=== PATIENT | male | born 1960 | race African-American/Black ===

== ENCOUNTER 2018-05-09 03:27 | Emergency (ER) | payer OTHER ==
[2018-05-09] MEDS ORDERED: TETANUS & DIPHTHERIA TOX,ADULT 0.5 ML VIAL ONE (05:42)
[2018-05-09] MEDS ORDERED: LIDOCAINE 1% MPF 30 ML VIAL ONE (06:02)
--- NOTE | 2018-05-09 06:27 | EDPHYS ---
Physician Documentation [facility] Name: Misbah May Age: 57 yrs Sex: Male : 1960 Arrival Date: 05/09/2018 Time: 03:29 Bed 5 Private MD: ED Physician Noel Kumar HPI: 05/09 06:19 This 57 yrs old Black Male presents to ER via Ambulatory with complaints of Laceration pkl To Head. 06:19 The patient or guardian reports injury, a laceration, 4 cm(s). The complaints affect pkl the right forehead. Context of injury: resulted from a fall, Fell out of bed and hit corner of furniture. Onset: The symptoms/episode began/occurred just prior to arrival. Associated signs and symptoms: The patient has no apparent associated signs or symptoms, Loss of consciousness: This patient did not experience any loss of consciousness. Historical: - Allergies: 03:47 No Known Allergies; ao - Home Meds: 03:47 Blood pressure [Active]; ao - PMHx: 03:47 Hypertension; prostate enlarge; ao - PSHx: 03:47 None; ao - Immunization history:: Adult Immunizations up to date. - Social history:: Smoking status: Patient uses tobacco products. - Ebola Screening: : Patient negative for fever greater than or equal to 101.5 degrees Fahrenheit, and additional compatible Ebola Virus Disease symptoms Patient denies exposure to infectious person Patient denies travel to an Ebola-affected area in the 21 days before illness onset. ROS: 06:19 Eyes: Negative for injury, pain, redness, and discharge, ENT: Negative for injury, pkl pain, and discharge, Neck: Negative for injury, pain, and swelling, Cardiovascular: Negative for chest pain, palpitations, and edema, Respiratory: Negative for shortness of breath, cough, wheezing, and pleuritic chest pain, Abdomen/GI: Negative for abdominal pain, nausea, vomiting, diarrhea, and constipation, Back: Negative for injury and pain, : Negative for injury, bleeding, discharge, and swelling, MS/Extremity: Negative for injury and deformity. 06:19 Skin: Positive for laceration(s), of the right forehead. 06:19 Neuro: Negative for altered mental status, loss of consciousness. Exam: 06:19 Head/face: Noted is a laceration(s), that is deep, 4 cm(s), of the right forehead. pkl 06:19 Eyes: Exam is negative for acute changes. 06:19 ENT: Exam is negative for acute changes. 06:19 Neck: Exam negative for obvious evidence of injury or deformity, nuchal rigidity. 06:19 Chest/axilla: Exam negative for acute changes. 06:19 Cardiovascular: Rate: normal, Rhythm: regular. 06:19 Respiratory: the patient does not display signs of respiratory distress, Respirations: normal, Breath sounds: are clear throughout. 06:19 Abdomen/GI: Exam negative for acute changes. 06:19 Back: Exam negative for acute changes. 06:19 : Exam negative for acute changes. 06:19 Musculoskeletal/extremity: Exam is negative for acute changes. 06:19 Skin: Exam negative for rash. 06:19 Neuro: Orientation: is normal, Mentation: is normal, Cranial nerves: grossly normal, Motor: is normal. 06:27 Constitutional: This is a well developed, well nourished patient who is awake, alert, pkl and in no acute distress. Vital Signs: 03:48 BP 173 / 109; Pulse 72; Resp 18; Pulse Ox 96% on R/A; Weight 127.01 kg; Height 5 ft. 6 ao in. (167.64 cm); Pain 6/10; 04:40 BP 135 / 97; Pulse 76; Resp 18; Pulse Ox 96% on R/A; Pain 0/10; ao 05:20 BP 143 / 96; Pulse 69; Resp 18; Pulse Ox 98% on R/A; Pain 0/10; ao 05:50 Temp 98.3(O); ak1 03:48 Body Mass Index 45.19 (127.01 kg, 167.64 cm) ao Nadine Coma Score: 06:19 Eye Response: spontaneous(4). Verbal Response: oriented(5). Motor Response: obeys pkl commands(6). Total: 15. Laceration: 06:19 Wound Repair of 4cm ( 1.6in ) subcutaneous laceration to right forehead. Minimal pkl bleeding noted.. Distal neuro/vascular/tendon intact. Anesthesia: Local anesthetic administered with 5 mls of 1% lidocaine. Wound prep: Extensive cleansing by me. Skin closed with 4 4-0 Prolene using simple sutures and sterile technique. Dressed with Neosporin. Patient tolerated well. MDM: 03:33 Patient medically screened. pkl 06:19 Data reviewed: vital signs, nurses notes, radiologic studies, CT scan. pk 05/09 05:26 Order name: CT Head Brain wo Cont cc 05/09 05:46 Order name: Suture Tray Setup; Complete Time: 05:46 [facility] Administered Medications: 05:40 Drug: Tetanus-Diphtheria Toxoid Adult 0.5 ml {Auto Body Mechanic: [employer]. Exp: ak1 04/29/2020. Lot #: [id number]. } Route: IM; Site: right deltoid; 05:52 Follow up: Response: No adverse reaction ak1 06:18 Drug: Lidocaine (1 %) 1 per protocol Volume: 20 ml; Route: Infiltration; ak1 06:18 Follow up: Response: No adverse reaction; placed at bedside for provier to administer. ak1 Disposition: 05/09/18 06:26 Discharged to Home. Impression: Head injury. Laceration forehead. S/P Fall. - Condition is Stable. - Medication Reconciliation Form, Thank You Letter, Antibiotic Education, Prescription Opioid Use form. - Follow up: Private Physician; When: 1 week; Reason: Wound Recheck, Staple/Suture removal, Re-evaluation by your physician. Signatures: Dispatcher [employer] EDHI Noel Kumar MD MD pkl Krenek, Amber, RN RN ak1 Mu Vazquez RN RN ao Corrections: (The following items were deleted from the chart) 05:58 05:26 Head Brain Wo Cont+CT.RAD.BRZ ordered. [facility] EDHI 06:35 06:26 05/09/2018 06:26 Discharged to Home. Impression: Head injury. Laceration ak1 forehead. S/P Fall. Condition is Stable. Forms are Medication Reconciliation Form, Thank You Letter, Antibiotic Education, Prescription Opioid Use. Follow up: Private Physician; When: 1 week; Reason: Wound Recheck, Staple/Suture removal, Re-evaluation by your physician. pk
--- NOTE | 2018-05-09 06:27 | ER ---
Nurse's Notes [facility] Name: Misbah May Age: 57 yrs Sex: Male : 1960 Arrival Date: 05/09/2018 Time: 03:29 Bed 5 Private MD: Diagnosis: Head injury. Laceration forehead. S/P Fall Presentation: 05/09 03:43 Presenting complaint: Patient states: Was sleeping and fall out of bed hitting on the ao corner of a furniture. Patient presented with a lacerations in the right side of the forehead. Transition of care: patient was not received from another setting of care. Complicating Factors: There are no complicating factors for this patient. Onset of symptoms was May 09, 2018 at 03:00. Risk Assessment: Do you want to hurt yourself or someone else? Patient reports no desire to harm self or others. Initial Sepsis Screen: Does the patient meet any 2 criteria? No. Patient's initial sepsis screen is negative. Does the patient have a suspected source of infection? No. Patient's initial sepsis screen is negative. Care prior to arrival: None. 03:43 Method Of Arrival: Ambulatory ao 03:43 Acuity: GEMA 3 ao Historical: - Allergies: 03:47 No Known Allergies; ao - Home Meds: 03:47 Blood pressure [Active]; ao - PMHx: 03:47 Hypertension; prostate enlarge; ao - PSHx: 03:47 None; ao - Immunization history:: Adult Immunizations up to date. - Social history:: Smoking status: Patient uses tobacco products. - Ebola Screening: : Patient negative for fever greater than or equal to 101.5 degrees Fahrenheit, and additional compatible Ebola Virus Disease symptoms Patient denies exposure to infectious person Patient denies travel to an Ebola-affected area in the 21 days before illness onset. Screenin:21 Abuse screen: Denies threats or abuse. Denies injuries from another. Nutritional ao screening: No deficits noted. Tuberculosis screening: No symptoms or risk factors identified. Fall Risk None identified. Assessment: 03:30 General: Appears in no apparent distress. comfortable, Behavior is calm, cooperative, ao appropriate for age. Pain: Complains of pain in forehead. Neuro: Level of Consciousness is awake, alert, obeys commands, Oriented to person, place, time, situation, Appropriate for age Moves all extremities. Full function Speech is normal, Facial symmetry appears normal. Cardiovascular: Capillary refill < 3 seconds Patient's skin is warm and dry. Respiratory: Airway is patent Respiratory effort is even, unlabored, Respiratory pattern is regular, symmetrical. GI: Abdomen is non-distended. : No signs and/or symptoms were reported regarding the genitourinary system. EENT: No signs and/or symptoms were reported regarding the EENT system. Derm: Wound noted forehead. Musculoskeletal: Laceration to the right side of the head. Bleeding controlled. Injury Description: Laceration is contaminated, 0.5 to 2.5 cm long, not bleeding. 04:40 Reassessment: Patient stable at this moment. No procedures orders. Dr Kumar in another ao room with a critical patient. 05:19 Reassessment: Patient appears in no apparent distress at this time. Patient and/or ao family updated on plan of care and expected duration. Pain level reassessed. Patient sleeping with no ss of distress. 05:50 Reassessment: pt hair shaved at site, wound cleaned with saline, suture set up at ak1 bedside for provider. pt in CT now. Vital Signs: 03:48 BP 173 / 109; Pulse 72; Resp 18; Pulse Ox 96% on R/A; Weight 127.01 kg; Height 5 ft. 6 ao in. (167.64 cm); Pain 6/10; 04:40 BP 135 / 97; Pulse 76; Resp 18; Pulse Ox 96% on R/A; Pain 0/10; ao 05:20 BP 143 / 96; Pulse 69; Resp 18; Pulse Ox 98% on R/A; Pain 0/10; ao 05:50 Temp 98.3(O); ak1 03:48 Body Mass Index 45.19 (127.01 kg, 167.64 cm) ao Nadine Coma Score: 06:19 Eye Response: spontaneous(4). Verbal Response: oriented(5). Motor Response: obeys pkl commands(6). Total: 15. ED Course: 03:29 Patient arrived in ED. do 03:33 Noel Kumar MD is Attending Physician. pkl 03:43 Mu Vazquez RN is Primary Nurse. ao 03:45 Triage completed. ao 03:47 Arm band placed on right wrist. Patient placed in an exam room, on a stretcher, on ao surveillance system monitor, on pulse oximetry, Patient notified of wait time. 05:21 Patient has correct armband on for positive identification. Pulse ox on. NIBP on. ao 05:[address] via stretcher. kw1 05:56 CT Head Brain wo Cont In Process Unspecified. EDMS 05:57 CT completed. Patient tolerated procedure well. Patient moved back from CT. kw1 06:20 Assist provider with laceration repair on forehead that was 2.5 cm. or less using ak1 sutures. Set up tray. Performed by Noel Kumar MD. 06:20 Patient did not have IV access during this emergency room visit. ak1 Administered Medications: 05:40 Drug: Tetanus-Diphtheria Toxoid Adult 0.5 ml {Rn Intake: [employer]. Exp: ak1 04/29/2020. Lot #: [id number]. } Route: IM; Site: right deltoid; 05:52 Follow up: Response: No adverse reaction ak1 06:18 Drug: Lidocaine (1 %) 1 per protocol Volume: 20 ml; Route: Infiltration; ak1 06:18 Follow up: Response: No adverse reaction; placed at bedside for provier to administer. ak1 Intake: Outcome: 06:26 Discharge ordered by . pkgeorgi 06:35 Discharged to home ambulatory. ak1 06:35 Condition: good 06:35 Discharge instructions given to patient, Instructed on discharge instructions, follow up and referral plans. wound care, Demonstrated understanding of instructions, follow-up care, wound care. 06:35 Patient left the ED. ak1 Signatures: Dispatcher [employer] EDMS Noel Kumar MD MD pkHalima Sorto RN RN ak1 Mu Vazquez, RN RN Olive Bloom Kimberly kw1
--- NOTE | 2018-05-09 11:12 | RAD REPORT ---
EXAM DESCRIPTION: CT - Head Brain Wo Cont - 05/09/2018 5:55 am CLINICAL HISTORY: Fall Trauma, head injury COMPARISON: No comparisons TECHNIQUE: All CT scans are performed using dose optimization technique as appropriate and may inclu de automated exposure control or mA/KV adjustment according to patient size. FINDINGS: No intracranial hemorrhage, hydrocephalus or extra-axial fluid collection.No areas of brai n edema or evidence of midline shift. The paranasal sinuses and mastoids are clear. The calvarium is intact. IMPRESSION: No acute intracranial abnormality.
== END 2018-05-09 06:35 | disposition home or self-care (01) ==
LOC: ER 03:27
PROC: 0JQ10ZZ Repair Face Subcutaneous Tissue and Fascia, Open Approach (ICD-10-PCS; principal; 2018-05-09)
DX: S01.81XA Laceration without foreign body of other part of head, initial encounter (principal); I10 Essential (primary) hypertension; W17.89XA Other fall from one level to another, initial encounter; Y93.89 Activity, other specified; Y92.013 Bedroom of single-family (private) house as the place of occurrence of the external cause
CPT/HCPCS: 70450; 90714; 99284

== ENCOUNTER 2018-06-25 15:38 | Emergency (ER) | payer OTHER ==
[2018-06-25] MEDS ORDERED: IBUPROFEN 400 MG TAB ONE (18:21)
[2018-06-25] MEDS ORDERED: HYDROCODONE/APAP 7.5/325 MG TAB ONE (18:21)
--- NOTE | 2018-06-25 18:26 | RAD REPORT ---
EXAM DESCRIPTION: RAD - Ankle Left 3 View - 06/25/2018 4:57 pm CLINICAL HISTORY: Trauma, ankle pain COMPARISON: None. FINDINGS: Minimal bony avulsion is suspected at the inferior tip medial malleolus. Patient has moder ate severity underlying degenerative change at the tibiotalar joint space. No other fracture changes suspected. Moderate plantar spur is present. No joint effusion seen. No joint space narrowing. Soft t issue swelling around the ankle joint noted. IMPRESSION: Suspected minimal bony avulsion from the inferior tip of the medial malleolus.
--- NOTE | 2018-06-25 18:27 | RAD REPORT ---
EXAM DESCRIPTION: RAD - Foot Left 3 View - 06/25/2018 4:57 pm CLINICAL HISTORY: Trauma to the foot, foot pain COMPARISON: None. FINDINGS: No fracture, dislocation or periosteal reaction. No acute or destructive bony process. De generative changes are present at the first MTP joint. Moderate plantar spur is present. No air or foreign body in the soft tissues. IMPRESSION: Degenerative changes are present but no fracture confirmed.
--- NOTE | 2018-06-25 19:03 | EDPHYS ---
Physician Documentation [facility] Name: Misbah May Age: 57 yrs Sex: Male : 1960 Arrival Date: 06/25/2018 Time: 15:41 Bed 18 Private MD: ED Physician Shahzad Betancourt HPI: 06/25 18:00 This 57 yrs old Black Male presents to ER via Wheelchair with complaints of Ankle cp Injury. 18:00 The patient presents with an injury, pain, that is acute, swelling, tenderness. The cp complaints affect the left ankle. Onset: The symptoms/episode began/occurred today. 18:00 Context: struck big toe against door last night. cp 18:00 Associated signs and symptoms: Pertinent positives: drainage from toes, Pertinent cp negatives: calf tenderness, numbness, tingling, warmth. Historical: - Allergies: 15:50 No Known Allergies; aa5 - PMHx: 15:50 Hypertension; Enlarged prostate; aa5 - PSHx: 15:50 None; aa5 - Immunization history:: Adult Immunizations unknown. - Social history:: Smoking status: Patient uses tobacco products, smokes one-half pack cigarettes per day. - Ebola Screening: : No symptoms or risks identified at this time. ROS: 18:05 Constitutional: Negative for body aches, chills, fever, poor PO intake. cp 18:05 Eyes: Negative for injury, pain, redness, and discharge. cp 18:05 ENT: Negative for drainage from ear(s), ear pain, sore throat, difficulty swallowing, difficulty handling secretions. 18:05 Cardiovascular: Negative for chest pain, edema, palpitations. 18:05 Respiratory: Negative for cough, shortness of breath, wheezing. 18:05 Abdomen/GI: Negative for abdominal pain, nausea, vomiting, and diarrhea. 18:05 Back: Negative for pain at rest, pain with movement, radiated pain. 18:05 : Negative for urinary symptoms. 18:05 MS/extremity: Positive for pain, swelling, tenderness, of the left ankle. 18:05 All other systems are negative. Exam: 18:10 Constitutional: The patient appears in no acute distress, alert, awake, non-toxic, well cp developed, well nourished, obese. 18:10 Head/Face: Normocephalic, atraumatic. cp 18:10 Eyes: Periorbital structures: appear normal, Conjunctiva: normal, no exudate, no injection, Lids and lashes: appear normal, bilaterally. 18:10 ENT: External ear(s): are unremarkable, Nose: is normal, Mouth: Lips: moist, Oral mucosa: moist, Posterior pharynx: Airway: no evidence of obstruction, patent. 18:10 Chest/axilla: Inspection: normal. 18:10 Cardiovascular: Rate: normal. 18:10 Respiratory: the patient does not display signs of respiratory distress, Respirations: normal, no use of accessory muscles, no retractions, no splinting, no tachypnea. 18:10 Abdomen/GI: Inspection: obese 18:10 Back: pain, is absent, ROM is normal. 18:10 Musculoskeletal/extremity: Extremities: grossly normal except: noted in the left ankle and left foot: swelling, tenderness noted distal medial malleolus, There is no evidence of decreased ROM, deformity. 18:10 Skin: noted superficial wounds plantar surface of proximal left second and third toes, mild purulent drainage noted, mild swelling. Vital Signs: 15:54 BP 126 / 76; Pulse 96; Resp 18 S; Temp 99.8; Pulse Ox 98% on R/A; Weight 142.88 kg (R); aa5 Height 6 ft. 1 in. (185.42 cm) (R); Pain 5/10; 18:15 BP 132 / 81; Pulse 91; Resp 16; Pulse Ox 99% on R/A; Pain 5/10; em 15:54 Body Mass Index 41.56 (142.88 kg, 185.42 cm) aa5 MDM: 17:41 Patient medically screened. cp 19:00 Data reviewed: vital signs, nurses notes, radiologic studies, plain films, and as a cp result, I will discharge patient. 19:00 Test interpretation: by ED physician or midlevel provider: plain radiologic studies. cp Counseling: I had a detailed discussion with the patient and/or guardian regarding: the historical points, exam findings, and any diagnostic results supporting the discharge/admit diagnosis, radiology results, the need for outpatient follow up, a family practitioner, to return to the emergency department if symptoms worsen or persist or if there are any questions or concerns that arise at home. Response to treatment: the patient's symptoms have mildly improved after treatment, and as a result, I will discharge patient. 06/25 18:12 Order name: Wound Culture cp 06/25 15:56 Order name: Ankle Left 3 View XRAY; Complete Time: 18:45 aa5 06/25 15:56 Order name: Foot Left 3 View XRAY; Complete Time: 18:45 aa5 Administered Medications: 18:21 Drug: Hydrocodone-Acetaminophen (7.5 mg-325 mg) 1 tabs Route: PO; em 19:10 Follow up: Response: No adverse reaction; Pain is decreased em 18:21 Drug: Ibuprofen 800 mg Route: PO; em 19:10 Follow up: Response: No adverse reaction; Pain is decreased em Disposition: 06/25/18 19:00 Discharged to Home. Impression: Pain in left ankle and joints of left foot - with avulsion chip fracture medial malleolus, Cellulitis of left lower limb - Left Foot. - Condition is Stable. - Discharge Instructions: Elastic Bandage and RICE, Cellulitis, Adult, Ankle Pain. - Prescriptions for Clotrimazole 1 % Topical Cream - Apply to affected area 1 application by TOPICAL route every 12 hours apply to toes of left foot; 30 gram. Bactrim DS 800- 160 mg Oral Tablet - take 1 tablet by ORAL route every 12 hours for 10 days; 20 tablet. Anaprox DS 550 mg Oral Tablet - take 1 tablet by ORAL route every 12 hours As needed; 20 tablet. - Medication Reconciliation Form, Thank You Letter, Antibiotic Education, Prescription Opioid Use form. - Follow up: Private Physician; When: 2 - 3 days; Reason: Recheck today's complaints. - Problem is new. - Symptoms have improved. Addendum: 06/28/2018 08:13 Co-signature as Attending Physician, Shahzad Betancourt MD I agree with the assessment and c plascencia plan of care. Signatures: Dispatcher [employer] Shahzad Castanon MD MD cha Munoz, Edgar, BELL ATTENDANT BELL ATTENDANT Lin Apodaca RN RN aa5 Shahzad Camp PA PA cp Corrections: (The following items were deleted from the chart) 06/25 19:17 19:00 06/25/2018 19:00 Discharged to Home. Impression: Pain in left ankle and joints of em left foot - with avulsion chip fracture medial malleolus; Cellulitis of left lower limb - Left Foot. Condition is Stable. Forms are Medication Reconciliation Form, Thank You Letter, Antibiotic Education, Prescription Opioid Use. Follow up: Private Physician; When: 2 - 3 days; Reason: Recheck today's complaints. Problem is new. Symptoms have improved. cp
--- NOTE | 2018-06-25 19:03 | ER ---
Nurse's Notes [facility] Name: Misbah May Age: 57 yrs Sex: Male : 1960 Arrival Date: 06/25/2018 Time: 15:41 Bed 18 Private MD: Diagnosis: Pain in left ankle and joints of left foot-with avulsion chip fracture medial malleolus;Cellulitis of left lower limb-Left Foot Presentation: 06/25 15:53 Presenting complaint: Patient states: "I opened the door last night and hit my big toe aa5 with it but this morning I woke up with my left ankle hurting". Transition of care: patient was not received from another setting of care. Onset of symptoms was June 2018. Risk Assessment: Do you want to hurt yourself or someone else? Patient reports no desire to harm self or others. Initial Sepsis Screen: Does the patient meet any 2 criteria? No. Patient's initial sepsis screen is negative. Does the patient have a suspected source of infection? No. Patient's initial sepsis screen is negative. Care prior to arrival: None. 15:53 Method Of Arrival: Wheelchair aa5 15:53 Acuity: GEMA 4 aa5 Historical: - Allergies: 15:50 No Known Allergies; aa5 - PMHx: 15:50 Hypertension; Enlarged prostate; aa5 - PSHx: 15:50 None; aa5 - Immunization history:: Adult Immunizations unknown. - Social history:: Smoking status: Patient uses tobacco products, smokes one-half pack cigarettes per day. - Ebola Screening: : No symptoms or risks identified at this time. Screenin:15 Abuse screen: Denies threats or abuse. Nutritional screening: No deficits noted. em Tuberculosis screening: No symptoms or risk factors identified. Fall Risk None identified. Assessment: 18:15 General: Appears in no apparent distress. uncomfortable, Behavior is calm, cooperative. em Pain: Complains of pain in right foot Pain currently is 5 out of 10 on a pain scale. Neuro: Level of Consciousness is awake, alert, obeys commands, Oriented to person, place, time, situation. Cardiovascular: Capillary refill < 3 seconds Patient's skin is warm and dry. Respiratory: Airway is patent Respiratory effort is even, unlabored, Respiratory pattern is regular, symmetrical. GI: Abdomen is obese. : No signs and/or symptoms were reported regarding the genitourinary system. EENT: No signs and/or symptoms were reported regarding the EENT system. Derm: Wound noted right foot Wound is excoriation noted in the webbings of 2nd, 3rd, and 4th toes. Musculoskeletal: Range of motion: intact in right ankle Swelling present in right foot. 18:20 General: The previous assessment is accurate, call light remains within reach. . ss Vital Signs: 15:54 BP 126 / 76; Pulse 96; Resp 18 S; Temp 99.8; Pulse Ox 98% on R/A; Weight 142.88 kg (R); aa5 Height 6 ft. 1 in. (185.42 cm) (R); Pain 5/10; 18:15 BP 132 / 81; Pulse 91; Resp 16; Pulse Ox 99% on R/A; Pain 5/10; em 15:54 Body Mass Index 41.56 (142.88 kg, 185.42 cm) aa5 ED Course: 15:41 Patient arrived in ED. mr 15:53 Arm band placed on. aa5 15:54 Triage completed. aa5 16:56 X-ray completed. Patient tolerated procedure well. Patient moved back from radiology. ls3 16:57 Ankle Left 3 View XRAY In Process Unspecified. EDMS 16:57 Foot Left 3 View XRAY In Process Unspecified. EDMS 17:41 Shahzad Camp PA is PHCP. cp 17:41 Shahzad Betancourt MD is Attending Physician. cp 17:52 Hasn Mukherjee LVN is Primary Nurse. em 18:15 Patient has correct armband on for positive identification. Bed in low position. Call em light in reach. Adult w/ patient. 18:20 Wound culture swab sent to lab. em 19:04 Dressings: Kerlix X 4; left foot. ORTHO BOOT. Wound care: to abrasion, located on left mh5 foot was cleaned with soap and water, Patient tolerated well. 19:11 No provider procedures requiring assistance completed. Patient did not have IV access em during this emergency room visit. Administered Medications: 18:21 Drug: Hydrocodone-Acetaminophen (7.5 mg-325 mg) 1 tabs Route: PO; em 19:10 Follow up: Response: No adverse reaction; Pain is decreased em 18:21 Drug: Ibuprofen 800 mg Route: PO; em 19:10 Follow up: Response: No adverse reaction; Pain is decreased em Outcome: 19:00 Discharge ordered by . cp 19:11 Discharged to home with crutches. em 19:11 Condition: good 19:11 Discharge instructions given to patient, Instructed on discharge instructions, follow up and referral plans. medication usage, crutch walking, Demonstrated understanding of instructions, follow-up care, medications, Prescriptions given X 3. 19:17 Patient left the ED. em Addendum: 07/01/2018 07:17 Addendum: Culture Results: Positive wound culture. No further action required. Bacteria i w sensitive to prescribed antibiotic. Signatures: Dispatcher [employer] EDNH IbarraLinh bailey mr Lonny, Hans, CREDIT CARD ASSOCIATE CREDIT CARD ASSOCIATE em Tiffany Griggs RN RN iw Calderon, Audri, RN RN aa5 Darlene Isaacs RN RN ss Page, Corey, PA PA cp Martinez, Maria [facility] Jaziel Marcus 3
== END 2018-06-25 19:17 | disposition home or self-care (01) ==
LOC: ER 15:38
DX: S82.52XA Displaced fracture of medial malleolus of left tibia, initial encounter for closed fracture (principal); L03.116 Cellulitis of left lower limb; W22.09XA Striking against other stationary object, initial encounter; Y93.9 Activity, unspecified; Y92.9 Unspecified place or not applicable; I10 Essential (primary) hypertension; F17.210 Nicotine dependence, cigarettes, uncomplicated
CPT/HCPCS: 87070; 87077; 87186; 87205; 99284

== ENCOUNTER 2019-08-10 20:53 | Emergency (ER) | payer OTHER, SELFPAY ==
--- OUTSIDE RECORDS SUMMARY | 2019-08-10 20:58 | XMS REPORT ---
:1960 Author Organization [facility] Address [address] [place] [address] [address] [place] [address] Care Team Providers Name Role Phone DR ELAN LITTLE Unavailable Unavailable Problems This patient has no known problems. Allergies, Adverse Reactions, Alerts This patient has no known allergies or adverse reactions. Medications This patient has no known medications. Encounters Start End Encounter Admission Attending Care Care Encounter Date/Time Date/Time Type Type Clinicians Facility Department ID 2019-05-19 2019-05-19 Outpatient [facility] RAD [id number] 11:05:00 23:59:00 ELAN Results Test Description Test Time Test Comments Text Results Atomic Results Result Comments KNEE RIGHT 1 OR 2 2019-05-19 11:56:32 Clinical history: Right knee VIEW*GP* pain.Location: D4.Findings: AP and lateral views of the right knee demonstrate moderatetricompartmental osteophyte formation. There is mild sclerosis surrounding themedial compartment with moderate medial joint space narrowing. There is alsojoint space loss at the patellofemoral compartment. No acute skeletalabnormalities. There is a moderate joint effusion. There is mild vascularcalcification. There is mild anterior soft tissue swelling/edema.Impression:1. Degenerative changes with moderate medial joint space narrowing.2. There is a moderate joint effusion.3. There is mild anterior soft tissue swelling/edema. CHEST 2 VIEW*GP* 2019-05-19 11:38:48 PA and lateral chest, 2 viewsLocation code: [id number] HISTORY: Myocardial infarctionCOMPARISON: NoneCOMMENTS: There is mild prominence of the central pulmonary vasculature andinterstitium. There is no lobar consolidation or effusion. The heart is mildlyenlarged. Degenerative changes are noted throughout the spine. IMPRESSION: Mild cardiomegaly with mild central congestion.
--- NOTE | 2019-08-10 23:53 | EDPHYS ---
Physician Documentation [facility] Name: Misbah May Age: 59 yrs Sex: Male : 1960 Arrival Date: 08/10/2019 Time: 20:58 Bed 24 Private MD: ED Physician Remi Kennedy HPI: 08/10 23:19 This 59 yrs old Black Male presents to ER via Ambulatory with complaints of Arm Pain. kb 23:19 The patient or guardian complains of decreased range of motion, pain, tenderness. right kb shoulder. Context: The problem was sustained at home, resulted from an unknown reason, "I think I slept on it wrong", The patient experiences decreased range of motion, when attempts to raise arm, The patient reports no obvious deformity. Onset: The symptoms/episode began/occurred 3 day(s) ago. Modifying factors: the symptoms are alleviated by nothing. The symptoms are aggravated by movement. Associated signs and symptoms: The patient has no apparent associated signs or symptoms. Severity of symptoms: At their worst the symptoms were moderate, in the emergency department the symptoms are unchanged. Treatment prior to arrival includes: no previous treatment. The patient has not experienced similar symptoms in the past. The patient has not recently seen a physician. Historical: - Allergies: 21:26 No Known Allergies; aj1 - Home Meds: 21:26 Trelegy ellipta [Active]; montelukast 10 mg oral tab 1 tab once daily [Active]; aj1 nifedipine 60 mg Oral TbER 1 tab once daily [Active]; clopidogrel 75 mg oral tab 1 tab once daily [Active]; losartan 100 mg oral tab 1 tab once daily [Active]; Metoprolol Tartrate Oral [Active]; tamsulosin 0.4 mg oral cp24 1 cap once daily [Active]; isosorbide mononitrate 60 mg Oral Tb24 1 tab once daily [Active]; aspirin 81 mg Oral TbEC 1 tab once daily [Active]; atorvastatin 20 mg oral tab 1 tab once daily [Active]; - PMHx: 21:26 enlarged prostate; Hypertension; prostate enlarge; COPD; Sleep Apnea; Myocardial aj1 infarction; Hyperlipidemia; - Immunization history:: Flu vaccine is not up to date. - Social history:: Smoking status: Patient uses tobacco products, denies chronic smoking, but will smoke occasionally. - Ebola Screening: : Patient denies travel to an Ebola-affected area in the 21 days before illness onset. ROS: 23:18 Constitutional: Negative for fever, chills, and weight loss, ENT: Negative for injury, kb pain, and discharge, Neck: Negative for injury, pain, and swelling, Cardiovascular: Negative for chest pain, palpitations, and edema, Respiratory: Negative for shortness of breath, cough, wheezing, and pleuritic chest pain, Abdomen/GI: Negative for abdominal pain, nausea, vomiting, diarrhea, and constipation, Back: Negative for injury and pain, Skin: Negative for injury, rash, and discoloration, Neuro: Negative for headache, weakness, numbness, tingling, and seizure. 23:18 MS/extremity: Positive for decreased range of motion, pain, tenderness, of the anterior aspect of right shoulder. Exam: 23:18 Constitutional: This is a well developed, well nourished patient who is awake, alert, kb and in no acute distress. Head/Face: Normocephalic, atraumatic. Neck: Trachea midline, no thyromegaly or masses palpated, and no cervical lymphadenopathy. Supple, full range of motion without nuchal rigidity, or vertebral point tenderness. No Meningismus. Chest/axilla: Normal chest wall appearance and motion. Nontender with no deformity. No lesions are appreciated. Cardiovascular: Regular rate and rhythm with a normal S1 and S2. No gallops, murmurs, or rubs. Normal PMI, no JVD. No pulse deficits. Respiratory: Lungs have equal breath sounds bilaterally, clear to auscultation and percussion. No rales, rhonchi or wheezes noted. No increased work of breathing, no retractions or nasal flaring. Abdomen/GI: Soft, non-tender, with normal bowel sounds. No distension or tympany. No guarding or rebound. No evidence of tenderness throughout. Skin: Warm, dry with normal turgor. Normal color with no rashes, no lesions, and no evidence of cellulitis. Neuro: Awake and alert, GCS 15, oriented to person, place, time, and situation. Cranial nerves II-XII grossly intact. Motor strength 5/5 in all extremities. Sensory grossly intact. Cerebellar exam normal. Normal gait. 23:18 Musculoskeletal/extremity: Extremities: grossly normal except: noted in the anterior aspect of right shoulder: decreased ROM, pain, tenderness, ROM: limited active range of motion, in the anterior aspect of right shoulder, Circulation is intact in all extremities. Sensation intact. Vital Signs: 21:26 BP 142 / 97; Pulse 95; Resp 20; Temp 98.5; Pulse Ox 93% ; Weight 151.95 kg (R); Height aj1 6 ft. 1 in. (185.42 cm) (R); Pain 5/10; 21:30 BP 132 / 70; Pulse 88; Resp 18; Temp 99; Pulse Ox 97% on R/A; Pain 9/10; jv1 22:53 BP 139 / 72; Pulse 90; Resp 18; Temp 99; Pulse Ox 98% on R/A; Pain 8/10; jv1 08/11 00:30 BP 132 / 75; Pulse 89; Resp 18; Temp 98; Pulse Ox 96% ; Pain 8/10; jv1 00:30 BP 135 / 70; Pulse 88; Resp 18; Temp 98; Pulse Ox 95% on R/A; jv1 08/10 21:26 Body Mass Index 44.20 (151.95 kg, 185.42 cm) aj1 MDM: 08/10 21:52 Patient medically screened. kb 23:18 Data reviewed: vital signs, nurses notes. Data interpreted: Pulse oximetry: on room air kb is 98 %. Interpretation: normal. 23:51 Counseling: I had a detailed discussion with the patient and/or guardian regarding: the kb historical points, exam findings, and any diagnostic results supporting the discharge/admit diagnosis, radiology results, the need for outpatient follow up, a family practitioner, a orthopedic surgeon, to return to the emergency department if symptoms worsen or persist or if there are any questions or concerns that arise at home. 08/10 22:05 Order name: Humerus Right XRAY kb 08/10 22:05 Order name: Forearm Right XRAY kb 08/10 22:05 Order name: EKG; Complete Time: 22:07 kb 08/10 22:05 Order name: EKG - Nurse/Tech; Complete Time: 22:19 kb 08/10 23:51 Order name: Sling; Complete Time: 00:08 kb Administered Medications: 08/11 00:10 Drug: TORadol 30 mg Route: IM; Site: left gluteus; jv1 00:45 Follow up: Response: No adverse reaction; Pain is decreased jv1 00:12 Drug: Flexeril 10 mg Route: PO; jv1 00:46 Follow up: Response: No adverse reaction; Pain is decreased jv1 Disposition: 01:13 Co-signature as Attending Physician, Remi Kennedy MD. rn Disposition: 08/10/19 23:52 Discharged to Home. Impression: Pain in right shoulder. - Condition is Stable. - Discharge Instructions: Shoulder Pain, [id number]. - Prescriptions for Cyclobenzaprine 10 mg Oral Tablet - take 1 tablet by ORAL route every 8 hours As needed; 21 tablet. Diclofenac Sodium 75 mg Oral Tablet, Delayed Release (E.C.) - take 1 tablet by ORAL route 2 times per day As needed; 30 tablet. - Medication Reconciliation Form, Thank You Letter, Antibiotic Education, Prescription Opioid Use form. - Follow up: Emergency Department; When: As needed; Reason: Worsening of condition. Follow up: Private Physician; When: 2 - 3 days; Reason: Recheck today's complaints, Continuance of care, Re-evaluation by your physician. Signatures: Dispatcher [employer] EDChey Ly, DRILLING PLANT OPERATOR-C DRILLING PLANT OPERATOR-Ckb Ayala Hernandez RN RN aj1 Remi Kennedy MD MD rn Vicente, Joyce, RN RN jv1 Corrections: (The following items were deleted from the chart) 00:46 08/10 23:52 08/10/2019 23:52 Discharged to Home. Impression: Pain in right shoulder. jv1 Condition is Stable. Forms are Medication Reconciliation Form, Thank You Letter, Antibiotic Education, Prescription Opioid Use. Follow up: Emergency Department; When: As needed; Reason: Worsening of condition. Follow up: Private Physician; When: 2 - 3 days; Reason: Recheck today's complaints, Continuance of care, Re-evaluation by your physician. kb
--- NOTE | 2019-08-10 23:53 | ER ---
Nurse's Notes [facility] Name: Misbah May Age: 59 yrs Sex: Male : 1960 Arrival Date: 08/10/2019 Time: 20:58 Bed 24 Private MD: Diagnosis: Pain in right shoulder Presentation: 08/10 21:20 Presenting complaint: Patient states: Right arm pain for the past 3 days. Denies any aj1 recent injury to right arm. States "I slept on the arm I thought it was that but it just keeps hurting more". Transition of care: patient was not received from another setting of care. Onset of symptoms was 2019. Risk Assessment: Do you want to hurt yourself or someone else? Patient reports no desire to harm self or others. Initial Sepsis Screen: Does the patient meet any 2 criteria? No. Patient's initial sepsis screen is negative. Does the patient have a suspected source of infection? No. Patient's initial sepsis screen is negative. Care prior to arrival: None. 21:20 Method Of Arrival: Ambulatory [facility] 21:20 Acuity: GEMA 4 aj1 Triage Assessment: 21:26 General: Appears in no apparent distress. uncomfortable, Behavior is calm, cooperative, aj1 appropriate for age. Pain: Complains of pain in right arm Pain currently is 5 out of 10 on a pain scale. Neuro: Level of Consciousness is awake, alert, obeys commands. Cardiovascular: Patient's skin is warm and dry. Respiratory: Airway is patent Respiratory effort is even, unlabored, Respiratory pattern is regular, symmetrical. Historical: - Allergies: 21:26 No Known Allergies; aj1 - Home Meds: 21:26 Trelegy ellipta [Active]; montelukast 10 mg oral tab 1 tab once daily [Active]; aj1 nifedipine 60 mg Oral TbER 1 tab once daily [Active]; clopidogrel 75 mg oral tab 1 tab once daily [Active]; losartan 100 mg oral tab 1 tab once daily [Active]; Metoprolol Tartrate Oral [Active]; tamsulosin 0.4 mg oral cp24 1 cap once daily [Active]; isosorbide mononitrate 60 mg Oral Tb24 1 tab once daily [Active]; aspirin 81 mg Oral TbEC 1 tab once daily [Active]; atorvastatin 20 mg oral tab 1 tab once daily [Active]; - PMHx: 21:26 enlarged prostate; Hypertension; prostate enlarge; COPD; Sleep Apnea; Myocardial aj1 infarction; Hyperlipidemia; - Immunization history:: Flu vaccine is not up to date. - Social history:: Smoking status: Patient uses tobacco products, denies chronic smoking, but will smoke occasionally. - Ebola Screening: : Patient denies travel to an Ebola-affected area in the 21 days before illness onset. Screenin:23 Abuse screen: Denies threats or abuse. Nutritional screening: No deficits noted. jv1 Tuberculosis screening: No symptoms or risk factors identified. Fall Risk None identified. No fall in past 12 months (0 pts). Assessment: 21:40 General: Appears uncomfortable, obese, well groomed. Pain: Complains of pain in right jv1 arm Pain radiates to right shoulder Pain currently is 8 out of 10 on a pain scale. Quality of pain is described as aching, Pain began 2-3 days ago. Neuro: Level of Consciousness is awake, alert, obeys commands, Oriented to person, place, time, situation, Mowing Machine Operator are equal bilaterally Moves all extremities. Cardiovascular: Denies chest pain, Heart tones S1 S2 present Capillary refill < 3 seconds is brisk. Respiratory: Airway is patent Breath sounds are clear bilaterally. GI: Abdomen is round obese, Bowel sounds present X 4 quads. : No signs and/or symptoms were reported regarding the genitourinary system. EENT: No signs and/or symptoms were reported regarding the EENT system. Derm: No signs and/or symptoms reported regarding the dermatologic system. Musculoskeletal: Circulation, motion, and sensation intact. Capillary refill < 3 seconds, Range of motion: limited in right arm. 22:53 Reassessment: Patient appears in no apparent distress at this time. No changes from jv1 previously documented assessment. Patient and/or family updated on plan of care and expected duration. Pain level reassessed. Patient is alert, oriented x 3, equal unlabored respirations, skin warm/dry/pink. 23:50 Reassessment: Sling applied to right arm. jv1 08/11 00:00 Reassessment: Patient appears in no apparent distress at this time. No changes from jv1 previously documented assessment. Patient and/or family updated on plan of care and expected duration. Pain level reassessed. Patient is alert, oriented x 3, equal unlabored respirations, skin warm/dry/pink. Patient states symptoms have improved. Vital Signs: 08/10 21:26 BP 142 / 97; Pulse 95; Resp 20; Temp 98.5; Pulse Ox 93% ; Weight 151.95 kg (R); Height aj1 6 ft. 1 in. (185.42 cm) (R); Pain 5/10; 21:30 BP 132 / 70; Pulse 88; Resp 18; Temp 99; Pulse Ox 97% on R/A; Pain 9/10; jv1 22:53 BP 139 / 72; Pulse 90; Resp 18; Temp 99; Pulse Ox 98% on R/A; Pain 8/10; jv1 08/11 00:30 BP 132 / 75; Pulse 89; Resp 18; Temp 98; Pulse Ox 96% ; Pain 8/10; jv1 00:30 BP 135 / 70; Pulse 88; Resp 18; Temp 98; Pulse Ox 95% on R/A; jv1 08/10 21:26 Body Mass Index 44.20 (151.95 kg, 185.42 cm) aj1 ED Course: 08/10 20:58 Patient arrived in ED. cf2 21:21 Triage completed. aj1 21:26 Arm band placed on. aj1 21:52 [facility] Palomares [facility]C [facility]. kb 21:52 Remi Kennedy MD is Attending Physician. kb 22:23 Patient has correct armband on for positive identification. Bed in low position. Call jv1 light in reach. Side rails up X 1. 22:41 Humerus Right XRAY In Process Unspecified. EDMS 22:41 Forearm Right XRAY In Process Unspecified. EDMS 08/11 00:43 No provider procedures requiring assistance completed. Patient did not have IV access jv1 during this emergency room visit. Administered Medications: 00:10 Drug: TORadol 30 mg Route: IM; Site: left gluteus; jv1 00:45 Follow up: Response: No adverse reaction; Pain is decreased jv1 00:12 Drug: Flexeril 10 mg Route: PO; jv1 00:46 Follow up: Response: No adverse reaction; Pain is decreased jv1 Outcome: 08/10 23:52 Discharge ordered by . kell 08/11 00:43 Discharged to home ambulatory, with family, with sling on the right arm jv1 Condition: improved Discharge instructions given to patient, family, Instructed on discharge instructions, follow up and referral plans. medication usage, use of sling 00:46 Patient left the ED. jv1 Signatures: Dispatcher [employer] EDMS Chey Palomares, CORPORATE COUNSEL-C CORPORATE COUNSEL-Ayala Collado RN RN aj1 Mikaela Toro RN RN jv1 Zoie Ribeiro cf2
[2019-08-11] MEDS ORDERED: CYCLOBENZAPRINE 10 MG TAB ONE (00:12)
[2019-08-11] MEDS ORDERED: KETOROLAC 30 MG/ML INJ ONE (00:12)
[2019-08-11 00:59] VITALS: BP 135/70; TEMP 98; O2SAT 95
--- NOTE | 2019-08-11 06:45 | EKG ---
Test Date: 2019-08-10 Test Time: 22:15:52 Mba Intern: LYNDAT MEASUREMENT RESULTS: Intervals: Rate: 90 CA: 174 QRSD: 94 QT: 362 QTc: 442 [place]: P: 37 CA: 174 QRS: 49 T: 45 INTERPRETIVE STATEMENTS: Normal sinus rhythm Possible Left atrial enlargement Borderline ECG No previous ECG available for comparison Electronically Signed On 08-11-19 06:44:54 CASEWORK SUPERVISOR by Kenn Rush
--- NOTE | 2019-08-11 11:23 | RAD REPORT ---
EXAM DESCRIPTION: RAD - Humerus Right - 08/10/2019 10:44 pm CLINICAL HISTORY: 59-year-old male with right humerus pain TECHNIQUE: Two x-ray views of the right humerus were performed on 08/10/2019 at 10:39 PM. COMPARISON: None FINDINGS: There is no evidence of fracture or dislocation. There is no significant arthritis or dege nerative change. No focal lytic or sclerotic bone lesions are seen. There are well corticated calci fications adjacent to the greater tuberosity of the right humeral head most likely related to calcifi c tendinopathy. There is a similar calcification adjacent to the lateral epicondyle of the distal hum erus consistent with calcific tendinopathy. Bone mineralization is normal. No additional focal soft tissue abnormalities are identified. IMPRESSION: No evidence of acute osseous injury involving the right humerus. There is evidence of ca lcific tendinopathy adjacent to the superolateral humeral head and lateral epicondyle. Electronically signed by: Qiana Casanova DO 08/10/2019 11:17 PM ASSISTANT DESIGNER Due to temporary technical issues with the PACS/Fluency reporting system, reports are being signed by the in house radiologist as a courtesy to ensure prompt reporting. The interpreting radiologist is f ully responsible for the content of the report.
--- NOTE | 2019-08-11 11:36 | RAD REPORT ---
EXAM DESCRIPTION: RAD - Forearm Right - 08/10/2019 10:42 pm CLINICAL HISTORY: 59 years Male PAIN TECHNIQUE: Two views of the right forearm are provided. COMPARISON: No prior exams provided for comparison. FINDINGS: No acute right forearm fracture or dislocation. Slight chronic degenerative change at the elbow joint. No aggressive osseous lesion. No radiodense foreign body IMPRESSION: No acute findings in the right forearm. Electronically signed by: Corina Parham MD 08/10/2019 11:16 PM OFFICE AUDITOR Due to temporary technical issues with the PACS/Fluency reporting system, reports are being signed by the in house radiologist as a courtesy to ensure prompt reporting. The interpreting radiologist is f ully responsible for the content of the report.
== END 2019-08-11 00:46 | disposition home or self-care (01) ==
LOC: ER 20:53
DX: M25.511 Pain in right shoulder (principal); I10 Essential (primary) hypertension; E78.5 Hyperlipidemia, unspecified; J44.9 Chronic obstructive pulmonary disease, unspecified; Z72.0 Tobacco use; Z79.82 Long term (current) use of aspirin
CPT/HCPCS: 93005; 96372; 99283

== ENCOUNTER 2020-09-13 09:27 | Emergency (ER) | payer SELFPAY ==
--- NOTE | 2020-09-13 09:45 | EDPHYS ---
Physician Documentation [facility] Name: Misbah May Age: 60 yrs Sex: Male : 1960 Arrival Date: 09/13/2020 Time: 09:30 Bed 7 Private MD: ED Physician Luis Cespedes HPI: 09/13 10:16 This 60 yrs old Black Male presents to ER via Ambulatory with complaints of Elbow kb Swelling. 10:16 The patient or guardian complains of swelling. The complaints affect the left elbow. kb Context: The problem was sustained at home, resulted from slept on arm. Onset: The symptoms/episode began/occurred 2 day(s) ago. Treatment prior to arrival includes: no previous treatment. Modifying factors: The symptoms are alleviated by nothing. the symptoms are aggravated by nothing. Associated signs and symptoms: Pertinent positives: swelling, Pertinent negatives: decreased range of motion, deformity, erythema, fever, nausea, numbness, pain, tingling, vomiting, warmth, weakness. Severity of symptoms: At their worst the symptoms were moderate, in the emergency department the symptoms are unchanged. The patient has not experienced similar symptoms in the past. The patient has not recently seen a physician. Pt reports swelling to elbow that started 2 days ago. States he slept on his arm all night the night before and that is the only thing he can think of that could have caused it. Denies injury or trauma. States he just cut up about 100 pounds of meat. Denies pain, but states it starts feeling tight on the skin with flexion of elbow. No redness or warmth. Full ROM. No fever. Historical: - Allergies: 09:45 No Known Allergies; aa5 - Home Meds: 09:45 aspirin 81 mg Oral TbEC 1 tab once daily [Active]; atorvastatin 20 mg Oral tab 1 tab aa5 once daily [Active]; clopidogrel 75 mg Oral tab 1 tab once daily [Active]; isosorbide mononitrate 60 mg Oral Tb24 1 tab once daily [Active]; losartan 100 mg Oral tab 1 tab once daily [Active]; Metoprolol Tartrate Oral [Active]; montelukast 10 mg Oral tab 1 tab once daily [Active]; nifedipine 60 mg Oral TbER 1 tab once daily [Active]; tamsulosin 0.4 mg Oral cp24 1 cap once daily [Active]; trelegy ellipta [Active]; - PMHx: 09:45 COPD; enlarged prostate; Hyperlipidemia; Hypertension; Myocardial infarction; prostate aa5 enlarge; Sleep Apnea; - Immunization history:: Adult Immunizations unknown. - Social history:: Smoking status: Patient reports the use of cigarette tobacco products, denies chronic smoking, but will smoke occasionally. ROS: 10:15 Constitutional: Negative for fever, chills, and weight loss, Cardiovascular: Negative kb for chest pain, palpitations, and edema, Respiratory: Negative for shortness of breath, cough, wheezing, and pleuritic chest pain, Abdomen/GI: Negative for abdominal pain, nausea, vomiting, diarrhea, and constipation, Skin: Negative for injury, rash, and discoloration, Neuro: Negative for headache, weakness, numbness, tingling, and seizure. 10:15 MS/extremity: Positive for swelling, of the left elbow. Exam: 10:15 Constitutional: This is a well developed, well nourished patient who is awake, alert, kb and in no acute distress. Head/Face: Normocephalic, atraumatic. Skin: Warm, dry with normal turgor. Normal color with no rashes, no lesions, and no evidence of cellulitis. Neuro: Awake and alert, GCS 15, oriented to person, place, time, and situation. Cranial nerves II-XII grossly intact. Motor strength 5/5 in all extremities. Sensory grossly intact. Cerebellar exam normal. Normal gait. 10:15 Musculoskeletal/extremity: Extremities: grossly normal except: noted in the left elbow: swelling, ROM: intact in all extremities, Circulation is intact in all extremities. Sensation intact. Vital Signs: 10:00 BP 153 / 81; Pulse 87; Resp 19; Temp 98.1; Pulse Ox 98% ; bp MDM: 09:38 Patient medically screened. kb 10:13 Data reviewed: vital signs, nurses notes. Data interpreted: Pulse oximetry: on room air kb is 98 %. Interpretation: normal. Counseling: I had a detailed discussion with the patient and/or guardian regarding: the historical points, exam findings, and any diagnostic results supporting the discharge/admit diagnosis, the need for outpatient follow up, a family practitioner, to return to the emergency department if symptoms worsen or persist or if there are any questions or concerns that arise at home. Administered Medications: 09:45 Drug: Ketorolac 60 mg Route: IM; Site: right gluteus; bp 10:08 Follow up: Response: Pain is decreased bp Disposition: 16:57 Co-signature as Attending Physician, Luis Cespedes MD I agree with the assessment and kdr plan of care. Disposition: 09/13/20 09:44 Discharged to Home. Impression: Other bursitis of elbow, left elbow. - Condition is Stable. - Discharge Instructions: Bursitis, [id number]. - Prescriptions for Diclofenac Sodium 75 mg Oral Tablet, Delayed Release (E.C.) - take 1 tablet by ORAL route 2 times per day As needed; 30 tablet. - Medication Reconciliation Form, Thank You Letter, Antibiotic Education, Prescription Opioid Use form. - Follow up: Emergency Department; When: As needed; Reason: Worsening of condition. Follow up: Private Physician; When: 2 - 3 days; Reason: Recheck today's complaints, Continuance of care, Re-evaluation by your physician. Signatures: Chey Palomares, SENIOR HOUSEKEEPER-C SENIOR HOUSEKEEPER-Ckb Luis Cespedes MD MD [facility] Lin Hugo, RN RN aa5 Ac Alicea, RN RN bp Corrections: (The following items were deleted from the chart) 10:08 09:44 09/13/2020 09:44 Discharged to Home. Impression: Other bursitis of elbow, left bp elbow. Condition is Stable. Forms are Medication Reconciliation Form, Thank You Letter, Antibiotic Education, Prescription Opioid Use. Follow up: Emergency Department; When: As needed; Reason: Worsening of condition. Follow up: Private Physician; When: 2 - 3 days; Reason: Recheck today's complaints, Continuance of care, Re-evaluation by your physician. kb
--- NOTE | 2020-09-13 09:45 | ER ---
Nurse's Notes [facility] Name: Misbah May Age: 60 yrs Sex: Male : 1960 Arrival Date: 09/13/2020 Time: 09:30 Bed 7 Private MD: Diagnosis: Other bursitis of elbow, left elbow Presentation: 09/13 09:35 Chief complaint: Patient states: "about a couple days ago I slept on my arm and I woke aa5 up with it numb and later that day my elbow started swelling up and hurting". Swelling noted to left elbow. 09:35 Coronavirus screen: At this time, the client does not indicate any symptoms associated aa5 with coronavirus-19. Risk Assessment: Do you want to hurt yourself or someone else? Patient reports no desire to harm self or others. Onset of symptoms was September 2020. 09:35 Acuity: GEMA 4 aa5 09:35 Method Of Arrival: Ambulatory aa5 09:35 Ebola Screen: No symptoms or risks identified at this time. Initial Sepsis Screen: Does bp the patient meet any 2 criteria? No. Patient's initial sepsis screen is negative. Does the patient have a suspected source of infection? No. Patient's initial sepsis screen is negative. Triage Assessment: 09:35 General: Appears in no apparent distress. comfortable, Behavior is cooperative, bp appropriate for age, anxious. Pain: Complains of pain in left arm. EENT: No deficits noted. Neuro: No deficits noted. Cardiovascular: No deficits noted. Respiratory: No deficits noted. GI: No signs and/or symptoms were reported involving the gastrointestinal system. : No signs and/or symptoms were reported regarding the genitourinary system. Derm: No deficits noted. Musculoskeletal: No deficits noted. Historical: - Allergies: 09:45 No Known Allergies; aa5 - Home Meds: 09:45 aspirin 81 mg Oral TbEC 1 tab once daily [Active]; atorvastatin 20 mg Oral tab 1 tab aa5 once daily [Active]; clopidogrel 75 mg Oral tab 1 tab once daily [Active]; isosorbide mononitrate 60 mg Oral Tb24 1 tab once daily [Active]; losartan 100 mg Oral tab 1 tab once daily [Active]; Metoprolol Tartrate Oral [Active]; montelukast 10 mg Oral tab 1 tab once daily [Active]; nifedipine 60 mg Oral TbER 1 tab once daily [Active]; tamsulosin 0.4 mg Oral cp24 1 cap once daily [Active]; trelegy ellipta [Active]; - PMHx: 09:45 COPD; enlarged prostate; Hyperlipidemia; Hypertension; Myocardial infarction; prostate aa5 enlarge; Sleep Apnea; - Immunization history:: Adult Immunizations unknown. - Social history:: Smoking status: Patient reports the use of cigarette tobacco products, denies chronic smoking, but will smoke occasionally. Screenin:00 Abuse screen: Denies threats or abuse. Denies injuries from another. Nutritional bp screening: No deficits noted. Tuberculosis screening: No symptoms or risk factors identified. Fall Risk None identified. Assessment: 09:35 General: SEE TRIAGE NOTE. bp 10:00 Reassessment: PT D/C HOME AMBULATORY, DX WITH BURSITIS. bp Vital Signs: 10:00 BP 153 / 81; Pulse 87; Resp 19; Temp 98.1; Pulse Ox 98% ; bp ED Course: 09:30 Patient arrived in ED. as 09:35 Arm band placed on Patient placed in an exam room, on a stretcher. aa5 09:38 Chey Palomares FNP-C is PHCP. kb 09:38 Luis Cespedes MD is Attending Physician. kb 09:41 Triage completed. aa5 10:00 Patient has correct armband on for positive identification. Bed in low position. Call bp light in reach. Side rails up X2. 10:00 No provider procedures requiring assistance completed. Patient did not have IV access bp during this emergency room visit. 10:03 Ac Alicea, RN is Primary Nurse. bp Administered Medications: 09:45 Drug: Ketorolac 60 mg Route: IM; Site: right gluteus; bp 10:08 Follow up: Response: Pain is decreased bp Outcome: 09:44 Discharge ordered by . kb 10:00 Discharged to home ambulatory. bp 10:00 Condition: stable 10:00 Discharge instructions given to patient, Instructed on discharge instructions, follow up and referral plans. medication usage, Demonstrated understanding of instructions, follow-up care, medications, Prescriptions given X 1. 10:08 Patient left the ED. bp Signatures: Chey Palomares FNP-C FNP-Ckb Martinez, Amelia as Calderon, Audri, RN RN aa5 Ac Alicea, RN RN bp
[2020-09-13] MEDS ORDERED: KETOROLAC 30 MG/ML INJ ONE (10:08)
[2020-09-13 10:13] VITALS: BP 153/81; TEMP 98.1; O2SAT 98
== END 2020-09-13 10:08 | disposition home or self-care (01) ==
LOC: ER 09:27
DX: M70.32 Other bursitis of elbow, left elbow (principal); J44.9 Chronic obstructive pulmonary disease, unspecified; E78.5 Hyperlipidemia, unspecified; I10 Essential (primary) hypertension; I25.2 Old myocardial infarction; F17.210 Nicotine dependence, cigarettes, uncomplicated
CPT/HCPCS: 96372; 99283